=== PATIENT | female | born 1950 | race Caucasian/White ===

== ENCOUNTER 2020-09-11 03:25 | Emergency (ER) | payer BC, MEDICARE ==
[~2020-09-11] VITALS: Ht 154.9 cm; Wt 58.1 kg
--- NOTE | 2020-09-11 03:35 | NUR ---
DR GANDARA AT BEDSIDE FOR MSE
--- NOTE | 2020-09-11 03:56 | NUR ---
Pt back from CT scan. Pt requested to leave and be called about results. ER MD notified. Patient was cleared for DC by ERMD. Written and verbal after care instructions given. Patient verbalizes understanding of instructions. Phone Numbers for results as follows: / . Stressed follow up or return to ER for worsening s/s. Pt was discharged to home in stable condition, ambulated out of ED in steady gait.
[2020-09-11 04:01] VITALS: BP 115/70
--- NOTE | 2020-09-11 05:07 | NUR ---
Ct scan results are back. Patient negative for stroke or any intracranial abnormality. MD relayed results to patient at this time.
== END 2020-09-11 04:15 | disposition home or self-care (01) ==
LOC: ER 03:25
DX: R51.9 Headache, unspecified (principal); E11.9 Type 2 diabetes mellitus without complications
CPT/HCPCS: 70450; A4663

== ENCOUNTER 2021-03-17 22:10 | Emergency (ER) | payer BC ==
[~2021-03-17] VITALS: Ht 154.9 cm; Wt 59.0 kg
[2021-03-17] MEDS ORDERED: ASPIRIN 81 MG TAB.CHEW PO ONE (22:45)
[2021-03-17 22:55] LABS: HEMATOCRIT 38.4 % (31.2-41.9); MEAN CORPUSCULAR HEMOGLOBIN 29.8 uug (24.7-32.8); MEAN CORPUSCULAR VOLUME 89.7 fL (75.5-95.3); PLATELET COUNT (AUTO) 289 K/uL (179-408)
[2021-03-17] MEDS ORDERED: ASPIRIN 81 MG TAB.CHEW ONE (22:57)
[2021-03-17 22:59] LABS: CREATININE 0.6 mg/dL (0.6-1.3); POTASSIUM 3.8 mmol/L (3.5-5.1)
[2021-03-17 23:15] LABS: BILIRUBIN,DIRECT 0.1 mg/dL (0.0-0.2); BILIRUBIN,TOTAL 0.2 mg/dL (0.2-1.0); TOTAL PROTEIN, SERUM 7.2 g/dL (6.4-8.2)
[2021-03-18 00:38] VITALS: BP 133/79
--- NOTE | 2021-03-18 00:39 | NUR ---
Patient refused IV access. No IV assess was obtained.
== END 2021-03-18 00:25 | disposition home or self-care (01) ==
LOC: ER 22:11
DX: M79.602 Pain in left arm (principal); J45.909 Unspecified asthma, uncomplicated; G43.909 Migraine, unspecified, not intractable, without status migrainosus
CPT/HCPCS: 36415; 70030-TC; 71045; 85025; 93005; A4663